=== PATIENT | male | born 1985 | race Caucasian/White ===

== ENCOUNTER 2020-02-19 22:35 | Emergency (ER) | payer SELFPAY ==
[2020-02-19 22:35] VITALS: BP 135/89; PULSE 96; RESP 18; TEMP 37; O2SAT 95
--- NOTE | 2020-02-19 22:50 | ED_ITS ---
HPI - Animal Bite General Chief Complaint: Animal Bite Stated Complaint: snake bite Time Seen by Provider: 02/19/20 22:36 History of Present Illness HPI narrative: Picked up by the side of the road by EMS and brought in c/o a snake bite. He initially told EMS that he was walking by the road and suddenly felt a snake come up and bite him. He is now claiming that he and his friend were playing with a rattle snake and it bit him. He thinks that this happened about 2 hours ago. Related Data Allergies Allergy/AdvReac Type Severity Reaction Status Date / Time No Known Allergies Allergy Unverified 02/01/15 07:52 Review of Systems Review of Systems: All systems reviewed & are unremarkable except as noted in HPI and below Constitutional: Constitutional: Denies fever(s) Cardiovascular: Cardiovascular: Denies chest pain Respiratory: Respiratory: Denies dyspnea Gastrointestinal: Gastrointestinal: Denies abdominal pain, Denies nausea and Denies vomiting Neurologic: Denies numbness and Denies weakness [facility] Social History Social History (Updated 02/19/20 @ 22:53 by Clarence Castillo MD) Substance use: current Substance use type: amphetamines Gender identity (if verbalized by the patient): Male Exam Const: General: healthy appearing, no acute distress and alert Orientation/consciousness: patient oriented x3 HENMT: Head: normal to inspection Resp: Effort & Inspection: normal respiratory effort Auscultation: clear to auscultation bilaterally, no rales, no rhonchi and no wheezes Cardio: Jugular venous distension: no JVD Rate: regular rate Rhythm: regular rhythm Heart sounds: no murmurs Other: 2 + radial pulses bilaterally GI: GI Palp: Yes Soft to palpation and No Tenderness to palpation present (GI) Skin: Other: Small abrasions to right forearm. Normal color Neuro: General: patient oriented x3 and moves all extremities Extrem: General: normal to inspection Psych: Appearance: well kempt Other: Pressured speech Course Vital Signs Vital signs: Vital Signs Temperature 37.0 C 02/19/20 22:35 Pulse Rate 96 02/19/20 22:35 Respiratory Rate 18 02/19/20 22:35 Blood Pressure 135/89 02/19/20 22:35 Pulse Oximetry 95 02/19/20 22:35 Temperature 37.0 C 02/19/20 22:35 Pulse Rate 96 02/19/20 22:35 Respiratory Rate 18 02/19/20 22:35 Blood Pressure 135/89 02/19/20 22:35 Pulse Oximetry 95 02/19/20 22:35 MDM - Animal Bite MDM Narrative Medical decision making narrative: It does not appear that he was bitten by a snake and there certainly are no signs of envenomation. I will observe him for a short period to make sure there is no progression. Discharge Plan Discharge Clinical Impression: Abrasion of forearm, left, Methamphetamine abuse Patient Disposition: Home, Self-Care Condition: Stable Instructions: Methamphetamine Abuse (ED), Abrasion (ED) Follow-up/Referrals: PHYSICIAN,[facility] [Primary Care Provider] - Deonte Castro MD [Physician] -
== END 2020-02-20 00:01 | disposition home or self-care (01) ==
PROVIDERS: Emergency Provider Emergency Medicine
DX: S50.811A Abrasion of right forearm, initial encounter (principal); F15.10 Other stimulant abuse, uncomplicated; X58.XXXA Exposure to other specified factors, initial encounter
CPT/HCPCS: 99281